=== PATIENT | male | born 1980 | race Caucasian/White ===

== ENCOUNTER 2017-01-11 22:39 | Emergency (ER) | payer OTHER ==
[~2017-01-11] VITALS: Ht 170.2 cm; Wt 94.5 kg
[2017-01-11 22:43] VITALS: Ht 170.2 cm; Wt 94.5 kg
[2017-01-11] MEDS ORDERED: ACETAMINOPHEN 325 MG TAB PO STA (23:34)
[2017-01-11] MEDS ORDERED: KETOROLAC 30 MG INJ IV STA (23:51)
[2017-01-12] MEDS ORDERED: CLINDAMYCIN 900 MG/D5W (PMX) 50 ML IVPB SCH
[2017-01-12] MEDS ORDERED: BENZOCAINE 20% 56 ML SPRAY TOP PRN ×2
[2017-01-12] MEDS ORDERED: DEXAMETHASONE 10 MG/ML 1 ML INJ IV ONE
[2017-01-12] MEDS ORDERED: LIDOCAINE 2% VISC 15 ML CUP PO ONE
--- NOTE | 2017-01-12 00:06 | ERD ---
ER Documentation Chief Complaint Date/Time DATE: 01/11/17 TIME: 23:58 Chief Complaint sore throat/painful swallowing x 2 days HPI 36-year-old male with a history of peritonsillar abscess presents emergency department complaining of left-sided throat pain, difficulty swallowing, fever, chills and body aches since today. Patient states he is attempted to treat his symptoms with ibuprofen with only mild relief. He states similar prior episodes and notes that the abscess was drained in the emergency department. Patient denies any abdominal pain, vomiting, diarrhea, shortness of breath or chest pain. ROS All systems reviewed and are negative except as per history of present illness. Medications Home Meds Active Scripts Naproxen* (Naprosyn*) 500 Mg Tablet, 500 MG PO BID for 7 Days, TAB Prov:COLLINS CABALLERO PA-C 01/12/17 Hydrocodone/Acetaminophen (Arpin 5-325 Tablet) 1 Each Tablet, 1 TAB PO Q6H Y for PAIN, #7 TAB Prov:COLLINS CABALLERO PA-C 01/12/17 Clindamycin Hcl* (Clindamycin Hcl*) 300 Mg Capsule, 300 MG PO TID for 10 Days, CAP Prov:COLLINS CABALLERO PA-C 01/12/17 Allergies Allergies: Coded Allergies: No Known Allergy (Verified Allergy, Unknown, 04/17/11) PMhx/Soc History of Surgery: Yes (lt eye surgery 02/25/11, drainage of L tonsil 3 yrs ago) Anesthesia Reaction: No Hx Neurological Disorder: No Hx Respiratory Disorders: No Hx Cardiac Disorders: No Hx Psychiatric Problems: No Hx Miscellaneous Medical Probl: No Hx Alcohol Use: No Hx Substance Use: Yes (occasional marijuana) Hx Tobacco Use: No Smoking Status: Never smoker Physical Exam Vitals Vital Signs Date Time Temp Pulse Resp B/P Pulse Ox O2 Delivery O2 Flow Rate FiO2 01/12/17 02:16 84 18 130/74 99 Room Air 01/12/17 01:40 100.7 01/11/17 22:43 101.9 115 20 120/75 98 Physical Exam Const: Well-developed, well-nourished, in mild distress Head: Atraumatic Eyes: Normal Conjunctiva ENT: Oropharynx with evidence of a 5 cm left sided tonsillar mass which is erythematous. Uvula shifted to the right. Normal External Ears, Nose Neck: Full range of motion..~ No meningismus. Resp: Clear to auscultation bilaterally Cardio: Regular rate and rhythm, no murmurs Abd: Soft, non tender, non distended. Normal bowel sounds Skin: No petechiae or rashes Back: No midline or flank tenderness Ext: No cyanosis, or edema Neur: Awake and alert Psych: Normal Mood and Affect Results 24 hrs Current Medications Medications (Trade) Dose Ordered Sig/Calixto Route PRN Reason Start Time Stop Time Status Last Admin Dose Admin Acetaminophen 650 mg 650 mg ONCE STAT PO 01/11/17 23:34 01/11/17 23:52 DC Clindamycin HCl/ Dextrose (Cleocin 900 Mg/ D5W (Pmx)) 50 ml @ 50 mls/hr ONCE IVPB 01/12/17 00:00 01/12/17 00:59 DC 01/12/17 00:27 Dexamethasone (Decadron) 10 mg ONCE ONCE IV 01/12/17 00:00 01/12/17 00:01 DC 01/12/17 00:16 Lidocaine (Xylocaine (Viscous)) 15 ml ONCE ONCE PO 01/12/17 00:00 01/12/17 00:01 DC 01/12/17 00:16 Benzocaine (Dermoplast Dewitt) 1 spray PRN PRN TOP throat pain 01/12/17 00:00 01/12/17 02:18 DC 01/12/17 00:16 Ketorolac Tromethamine (Toradol) 30 mg ONCE STAT IV 01/11/17 23:51 01/11/17 23:52 DC 01/12/17 00:17 Benzocaine (Dermoplast Dewitt) 1 spray PRN PRN TOP pain 01/12/17 00:00 01/12/17 02:18 DC Morphine Sulfate (morphine) 4 mg ONCE STAT IV 01/12/17 01:28 01/12/17 01:29 DC 01/12/17 01:38 Ondansetron HCl (Zofran Inj) 4 mg ONCE STAT IV 01/12/17 01:28 01/12/17 01:29 DC 01/12/17 01:38 Acetaminophen (Tylenol Tab) 650 mg ONCE ONCE PO 01/12/17 02:00 01/12/17 02:01 DC Procedures/MDM 36-year-old male with a history of peritonsillar abscess presents emergency department complaining of left-sided throat pain and difficulty swallowing. Patient febrile at 101.9 upon arrival. Patient non-hypoxic and normotensive. Physical exam revealed evidence of a large left-sided peritonsillar abscess. Abscess Incision and Drainage by me: Location: Left tonsil Anesthesia: Viscous lidocaine and benzocaine spray Technique: Punctured with 18-gauge spinal needle and aspirated approximately 3 cc of purulent fluid Packing: None Complications: No bleeding 48 hour check. Patient's symptoms have stabilized while they have been evaluated in the department and are appropriate for outpatient care and work up. Exam and w/u not consistent w/ sepsis, deep space infection, or foreign body. Patient received 1 dose of IV clindamycin, Decadron and Toradol in the emergency department and reports significant improvement of symptoms. Fever well controlled while in the emergency department. Patient nontoxic appearing upon arrival and tolerated abscess drainage without complication. There is no evidence of respiratory distress or compromise. Patient able to speak normally. Patient discharged with antibiotics and antipyretic. Strict return precautions discussed. Patient to follow-up with ENT specialist for recurrent peritonsillar abscess. Based on patient's history of present illness and physical examination the decision was made to discharge. The patient was re-evaluated after ED treatment and stabilizing measures, and symptoms have improved. There is no evidence of life threatening injuries or illnesses at this time. On re-examination, patient resting in no distress, stable vital signs, reports feeling better and safe for discharge with outpatient follow up with PMD in 1-2 days. Patient given return precautions. Departure Diagnosis: Primary Impression: Sore throat Additional Impressions: Peritonsillar abscess Fever Fever type: unspecified Qualified Code: R50.9 - Fever, unspecified fever cause Body aches COLLINS CABALLERO PA-C Jan 12, 2017 00:06
[2017-01-12] MEDS ORDERED: CLIN-73 PO (00:24)
[2017-01-12] MEDS ORDERED: HYDR-906 PO (00:24)
[2017-01-12] MEDS ORDERED: NAPR-260 PO (00:24)
[2017-01-12] MEDS ORDERED: morphine 4 MG/ML VIAL IV STA (01:28)
[2017-01-12] MEDS ORDERED: ONDANSETRON 4 MG INJ IV STA (01:28)
[2017-01-12 01:40] VITALS: TEMP 100.7
[2017-01-12] MEDS ORDERED: ACETAMINOPHEN 325 MG TAB PO ONE (02:00)
[2017-01-12 02:16] VITALS: BP 130/74; PULSE 84; RESP 18
== END 2017-01-12 02:15 | disposition home or self-care (01) ==
LOC: FTE 22:39
DX: J36 Peritonsillar abscess (principal); R50.9 Fever, unspecified; R52 Pain, unspecified
CPT/HCPCS: 42700; J1100; J1885; J2270; J2405; Z7610; 96374; 96375

== ENCOUNTER 2017-02-23 21:49 | Emergency (ER) | payer OTHER ==
[~2017-02-23] VITALS: Ht 172.7 cm; Wt 96.5 kg
[~2017-02-23 21:49] MED LIST: CLIN-73 PO; HYDR-906 PO; NAPR-260 PO
[2017-02-23 21:55] VITALS: Ht 172.7 cm; Wt 96.5 kg
[2017-02-24] MEDS ORDERED: ACET/BUTAL/CAFF TAB PO ONE (00:30)
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
--- NOTE | 2017-02-24 02:28 | RADRPT ---
PROCEDURE: CT BRAIN WITHOUT CONTRAST CLINICAL INDICATION: 36-year-old male with headaches. TECHNIQUE: The study was performed utilizing a GE [employer] VCT 64-slice CT scanner. Direct axia l sections were obtained from the foramen magnum to the vertex without the use of intravenous contra st material. Sagittal and coronal reformations were obtained. One or more the following dose reduct ion techniques were utilized: automated exposure control, adjustment of the mA and/or kV according t o patient's size or use of iterative reconstruction technique. The images were viewed on a PACS [employer]. CTD/vol = 45.0 mGy; Total Exam DLP = 810.3 mGy-cm. COMPARISON: None. FINDINGS: The ventricles have a normal size, shape and position. There is no evidence for mass effect or midl ine shift. There are no intracranial areas of abnormal attenuation. There is no evidence for acute intra or extra-axial blood. The bony calvarium is intact. The left globe is shrunken calcified cons istent with phthisis bulbi. As mild mucosal thickening within the ethmoid air cells and maxillary s inuses. No air-fluid levels are noted. The mastoid air cells are without significant soft tissue. IMPRESSION: 1. The intracranial contents are unremarkable on this noncontrast CT scan of the brain. 2. Left-sided phthisis bulbi. 3. Mild mucosal thickening paranasal sinuses. .David Mckeon MD, Date Time Electronically viewed and signed by .David Mckeon MD, on 02/24/2017 02:27 .M/
[2017-02-24] MEDS ORDERED: BUTA1CAP39 PO (02:38)
[2017-02-24] MEDS ORDERED: AMOX1TAB10 PO (02:38)
[2017-02-24] MEDS ORDERED: FLUT9.9S NASAL (02:38)
== END 2017-02-24 03:25 | disposition home or self-care (01) ==
LOC: FTE 21:49
DX: R51 Headache (principal); J01.80 Other acute sinusitis
CPT/HCPCS: 70450; Z7502; Z7610

== ENCOUNTER 2018-02-22 23:11 | Emergency (ER) | END 2018-02-23 00:01 | disposition left against medical advice (07) ==

== ENCOUNTER 2018-03-11 22:16 | Emergency (ER) | END 2018-03-12 00:45 | disposition left against medical advice (07) ==

== ENCOUNTER 2018-03-20 08:49 | Emergency (ER) | END 2018-03-20 14:19 | disposition home or self-care (01) ==

== ENCOUNTER 2018-06-05 21:13 | Emergency (ER) | END 2018-06-05 23:41 | disposition home or self-care (01) ==

== ENCOUNTER 2018-11-15 09:59 | Emergency (ER) | payer MEDICAID ==
[~2018-11-15] VITALS: Ht 170.2 cm; Wt 90.9 kg
[~2018-11-15 09:59] MED LIST changes: +AMOX1TAB10 PO; +BUTA1CAP39 PO; -CLIN-73 PO; +CLIN300C10 PO; +CYCL10TA7 PO; +FLUT9.9S NASAL; +HYDR-4011 PO; -HYDR-906 PO; +IBUP-1542 PO; +IBUP-1561 PO; -NAPR-260 PO; +NAPR-985 PO; +PRED20TA PO
[2018-11-15 10:03] VITALS: BP 132/85; PULSE 116; RESP 18; Ht 170.2 cm; Wt 90.9 kg
[2018-11-15] MEDS ORDERED: HYDROCODONE/APAP (10/325) TAB PO ONE (11:00)
[2018-11-15] MEDS ORDERED: BACITRACIN 0.9 GM OINT TOP ONE (11:00)
[2018-11-15] MEDS ORDERED: HYDR-4011 PO (11:27)
[2018-11-15] MEDS ORDERED: BACITUD TOP (11:38)
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
== END 2018-11-15 12:06 | disposition home or self-care (01) ==
LOC: FTE 09:59
DX: S80.11XA Contusion of right lower leg, initial encounter (principal); S99.911A Unspecified injury of right ankle, initial encounter; W22.8XXA Striking against or struck by other objects, initial encounter; Y92.9 Unspecified place or not applicable
CPT/HCPCS: 73590; 73610; Z7610

== ENCOUNTER 2018-11-17 11:24 | Emergency (ER) | payer MEDICAID ==
[~2018-11-17] VITALS: Wt 90.0 kg
[~2018-11-17 11:24] MED LIST changes: +BACITUD TOP
[2018-11-17 11:27] VITALS: BP 126/64; PULSE 84; RESP 18
[2018-11-17] MEDS ORDERED: KETOROLAC 60 MG INJ IM STA (12:25)
[2018-11-17] MEDS ORDERED: IBUP-1542 PO (14:59)
--- NOTE | 2018-11-17 15:13 | ERD ---
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 His pain is achy and rates it a 5 out of 10. States that he was evaluated 2 days ago, negative x-rays for any fractures or dislocations however feels like the swelling has not improved. States it has gotten worsen. Denies any fever, chills, nausea, vomiting, loss of sensation, loss of range of motion. ROS All systems reviewed and are negative except as per history of present illness. Medications Home Meds Active Scripts Ibuprofen* (Motrin*) 600 Mg Tab, 600 MG PO Q6, #30 TAB Prov:RONALDO RENDON PA-C 11/17/18 Bacitracin* (Bacitracin Oint (UD)*) 1 Applic Oint, 1 APPLIC TOP ONCE, #14 PKT APPLY TO Prov:RONALDO RENDON PA-C 11/15/18 Hydrocodone/Acetaminophen ([place] 5-325 Tablet) 1 Each Tablet, 1 TAB PO Q6H PRN for PAIN, #7 TAB Prov:RONALDO RENDON PA-C 11/15/18 Cyclobenzaprine Hcl* (Cyclobenzaprine Hcl*) 10 Mg Tablet, 10 MG PO Q8 PRN for PAIN, #60 TAB Prov:MARIELLA MULLENSON 09/01/18 Ibuprofen* (Ibuprofen*) 600 Mg Tablet, 600 MG PO Q6H PRN for PAIN, #30 TAB Prov:CHLOE MULLEN 09/01/18 Prednisone* (Prednisone*) 20 Mg Tab, 60 MG PO DAILY for 5 Days, TAB Prov:CHLOE MULLEN 09/01/18 Ibuprofen* (Motrin*) 400 Mg Tab, 400 MG PO Q8, #15 TAB Prov:KAYCE WERNER MD 03/20/18 Amoxicillin/Potassium Clav (Amox-Clav 875-125 mg Tablet) 875-125 mg Tab, 1 TAB PO BID for 7 Days, #14 TAB Prov:KAYCE WERNER MD 03/20/18 Fluticasone Propionate (Flonase Allergy Relief) 9.9 Ml [place].susp, 1 SPRAY NASAL BID, #1 BOTTLE TO EACH NOSTRIL Prov:LIZABETH ORELLANA NP 02/24/17 Amoxicillin/Potassium Clav (Amox-Clav 875-125 mg Tablet) 875-125 mg Tab, 1 TAB PO BID for 10 Days, #20 TAB Prov:LESLEEMASOODLIZABETH RAMIRES NP 02/24/17 Nekqmvzbfgmcu-Dfcnjfmenq-Ohjqfqpe-Codeine* (Fioricet w/ Codeine*) 317XP-65PS-32-30MG Capsule, 1 CAP PO Q6H PRN for PAIN LEVEL 1-5, #20 CAP Prov:LIZABETH ORELLANA NP 02/24/17 Naproxen* (Naprosyn*) 500 Mg Tablet, 500 MG PO BID for 7 Days, TAB Prov:COLLINS CABALLERO PA-C 01/12/17 Hydrocodone/Acetaminophen ([place] 5-325 Tablet) 1 Each Tablet, 1 TAB PO Q6H PRN for PAIN, #7 TAB Prov:COLLINS CABALLERO PA-C 01/12/17 Clindamycin Hcl* (Clindamycin Hcl*) 300 Mg Capsule, 300 MG PO TID for 10 Days, CAP Prov:COLLINS CABALLEROC 01/12/17 Allergies Allergies: Coded Allergies: No Known Allergy (Verified , 11/17/18) PMhx/Soc History of Surgery: Yes (lt eye surgery 11, drainage of L tonsil, umbilical h ernia repair 09) Anesthesia Reaction: No Hx Neurological Disorder: No Hx Respiratory Disorders: No Hx Cardiac Disorders: No Hx Psychiatric Problems: No Hx Miscellaneous Medical Probl: No Hx Alcohol Use: Yes Hx Substance Use: Yes (occasional marijuana) Hx Tobacco Use: No Smoking Status: Never smoker FmHx Family History: No diabetes, No coronary disease Physical Exam Vitals Vital Signs Date Temp Pulse Resp B/P (MAP) Pulse Ox O2 O2 Flow FiO2 Time Delivery Rate 11/17/18 98.1 84 18 126/64 99 11:27 (84) Physical Exam Const: Mgs-iti-gqpnwuxmd, well-nourished. In no acute distress. Head: Atraumatic, normocephalic Eyes: Normal Conjunctiva without injection ENT: Normal external ear, nose and mouth. Neck: Full range of motion. No meningismus. Resp: Clear to auscultation bilaterally. No wheezing, rhonchi, rales, or crackles. No accessory muscle use. No retractions. Cardio: Regular rate and rhythm, no murmurs Skin: No petechiae or rashes Back: No midline tenderness. No CVA tenderness. Ext: No cyanosis, or edema. Cap refill less than 2 seconds. Distal pulses intact bilaterally. There is tender to palpation of the left lateral malleolus with ecchymosis noted on the anterior menendez and edema noted of the calf. No palpable cords. No warmth to touch. No erythema. Limited range of motion with dorsiflexion, plantar flexion. Neur: Awake and alert. Normal gait and coordination. Muscle strength 5/5. Sensation intact bilaterally. Psych: Normal Mood and Affect Results 24 hrs Current Medications Medications Dose Sig/Calixto Start Time Status Last (Trade) Ordered Route PRN Stop Time Admin Dose Reason Admin Ketorolac 60 mg ONCE STAT 11/17/18 DC 11/17/18 Tromethamine IM 12:25 12:37 (Toradol) 11/17/18 12:27 Procedures/MDM 38-year-old male patient with no significant past medical history presents to ED complaining of a left ankle and menendez injury due to a machine about 1000 pounds hitting his leg. Patient is afebrile and nontoxic-appearing. Patient is here for the second time for reevaluation. A left tib-fib, ankle x-rays ordered to further evaluate patient. Since there is more swelling than 2 days ago, a venous ultrasound was also ordered to further evaluate patient. Patient denied wanting any pain medications at this time. IMPRESSION: Soft tissue swelling with no acute fracture. IMPRESSION: No sonographic evidence for deep venous thrombosis. IMPRESSION: Marked soft tissue swelling lateral to the lateral malleolus with no acute fracture. Patient is placed in a posterior ankle splint. Patient already has crutches from his visit, 2 days ago. Splint Assessment: Neurovascularly intact pre and post splint placement with good fit. Patient's extremity symptoms have stabilized while they have been evaluated in the department and are appropriate for outpatient follow up. No evidence of fractures, dislocations, compartment syndrome, neurologic injury, vascular injury, open joint, open fracture, tendon laceration, septic arthritis, osteomyelitis, DVT, foreign body, or other emergent conditions. Diagnosis: Pain of left leg Discharge medications: Ibuprofen Follow up with primary care physician in 1-2 days for referral to see orthopedic physician. Instructed patient to return to the ED sooner for any worsening symptoms. Patient's questions were answered. Patient is hemodynamically stable. Patient understood and agreed with discharge plan. Patient discharged stable. Disclaimer: Inadvertent spelling and grammatical errors are likely due to EHR/dictation software use and do not reflect on the overall quality of patient care. Also, please note that the electronic time recorded on this note does not necessarily reflect the actual time of the patient encounter. Departure Diagnosis: Primary Impression: Pain of left leg Condition: Stable Patient Instructions: Contusion, Lower Extremity, Ankle Fracture (Distal Fibula), Closed Referrals: [facility] YOU HAVE RECEIVED A MEDICAL SCREENING EXAM AND THE RESULTS INDICATE THAT YOU DO NOT HAVE A CONDITION THAT REQUIRES URGENT TREATMENT IN THE EMERGENCY DEPARTMENT. FURTHER EVALUATION AND TREATMENT OF YOUR CONDITION CAN WAIT UNTIL YOU ARE SEEN IN YOUR DOCTORS OFFICE WITHIN THE NEXT 1-2 DAYS. IT IS YOUR RESPONSIBILITY TO MAKE AN APPOINTMENT FOR FOLOW-UP CARE. IF YOU HAVE A PRIMARY DOCTOR --you should call your primary doctor and schedule an appointment IF YOU DO NOT HAVE A PRIMARY DOCTOR YOU CAN CALL OUR PHYSICIAN REFERRAL HOTLINE AT IF YOU CAN NOT AFFORD TO SEE A PHYSICIAN YOU CAN CHOSE FROM THE FOLLOWING [facility] [address] [facility]. [facility] [address] [facility]. [facility] [address] [address] [facility] [facility] [address] [facility]. [facility]. [address] [facility]. [facility] YOU HAVE RECEIVED A MEDICAL SCREENING EXAM AND THE RESULTS INDICATE THAT YOU DO NOT HAVE A CONDITION THAT REQUIRES URGENT TREATMENT IN THE EMERGENCY DEPARTMENT. FURTHER EVALUATION AND TREATMENT OF YOUR CONDITION CAN WAIT UNTIL YOU ARE SEEN IN YOUR DOCTORS OFFICE WITHIN THE NEXT 1-2 DAYS. IT IS YOUR RESPONSIBILITY TO MAKE AN APPOINTMENT FOR FOLOW-UP CARE. IF YOU HAVE A PRIMARY DOCTOR --you should call your primary doctor and schedule and appointment IF YOU DO NOT HAVE A PRIMARY DOCTOR YOU CAN CALL OUR PHYSICIAN REFERRAL HOTLINE AT . IF YOU CAN NOT AFFORD TO SEE A PHYSICIAN YOU CAN CHOSE FROM THE FOLLOWING [facility]: [facility] [address] [place] [address] [facility] [address] [place] [address] [facility] [address] [place] [address] [facility] Urgent Care 7 a.m.- 11 p.m. Every Day of the Week NO APPOINTMENT OR AUTHORIZATION NEEDED SO [facility] Hours: Mon-Fri 9:00 AM - 5:00 PM Additional Instructions: Call your primary care doctor TOMORROW for an appointment during the next 2-3 days for a referral to see an orthopedic phyisican.See the doctor sooner or return here if your condition worsens before your appointment time. RONALDO RENDON PA-C Nov 17, 2018 15:13
== END 2018-11-17 15:11 | disposition home or self-care (01) ==
LOC: FTE 11:24
DX: M79.605 Pain in left leg (principal)
CPT/HCPCS: 29515; 73590; 73610; 93971; 96372; J1885; Z7502

== ENCOUNTER 2019-02-28 14:52 | Emergency (ER) | payer MEDICAID, OTHER ==
[~2019-02-28] VITALS: Ht 170.2 cm; Wt 94.2 kg
[2019-02-28 14:56] VITALS: BP 127/77; PULSE 97; RESP 20; Ht 170.2 cm; Wt 94.2 kg
--- NOTE | 2019-02-28 15:51 | ERD ---
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 Patient said the same thing happened to him yesterday and he actually lost consciousness, he was also drinking alcohol, he was transported to unknown hospital, monitored and released. Today denies syncope, denies chest pain denies heart palpitations, denies shortness of breath, denies photophobia, phonophobia, blurred vision, nausea or vomiting. No abdominal pain, no hematuria, no melena. States headache is a diffuse dull pain without exacerbating features or neuro deficit. Patient is alert and appropriate, cooperative at time of evaluation. ROS All systems reviewed and are negative except as per history of present illness. Medications Home Meds Active Scripts Ibuprofen* (Motrin*) 600 Mg Tab, 600 MG PO Q6, #30 TAB Prov:RONALDO RENDON PA-C 11/17/18 Bacitracin* (Bacitracin Oint (UD)*) 1 Applic Oint, 1 APPLIC TOP ONCE, #14 PKT APPLY TO Prov:RONALDO RENDON PA-C 11/15/18 Hydrocodone/Acetaminophen ([place] 5-325 Tablet) 1 Each Tablet, 1 TAB PO Q6H PRN for PAIN, #7 TAB Prov:RONALDO RENDON PA-C 11/15/18 Cyclobenzaprine Hcl* (Cyclobenzaprine Hcl*) 10 Mg Tablet, 10 MG PO Q8 PRN for PAIN, #60 TAB Prov:CHLOE MULLEN 09/01/18 Ibuprofen* (Ibuprofen*) 600 Mg Tablet, 600 MG PO Q6H PRN for PAIN, #30 TAB Prov:CHLOE MULLEN 09/01/18 Prednisone* (Prednisone*) 20 Mg Tab, 60 MG PO DAILY for 5 Days, TAB Prov:CHLOE MULLEN 09/01/18 Ibuprofen* (Motrin*) 400 Mg Tab, 400 MG PO Q8, #15 TAB Prov:KAYCE WERNER MD 03/20/18 Amoxicillin/Potassium Clav (Amox-Clav 875-125 mg Tablet) 875-125 mg Tab, 1 TAB PO BID for 7 Days, #14 TAB Prov:NGUYEN-SOLER,KAYCE MD 03/20/18 Fluticasone Propionate (Flonase Allergy Relief) 9.9 Ml [place].susp, 1 SPRAY NASAL BID, #1 BOTTLE TO EACH NOSTRIL Prov:LIZABETH ORELLANA NP 02/24/17 Amoxicillin/Potassium Clav (Amox-Clav 875-125 mg Tablet) 875-125 mg Tab, 1 TAB PO BID for 10 Days, #20 TAB Prov:LIZABETH ORELLANA NP 02/24/17 Zyqpuqhwsivpv-Zwbrkgtfqe-Povkvhos-Codeine* (Fioricet w/ Codeine*) 141KN-43PM-07-30MG Capsule, 1 CAP PO Q6H PRN for PAIN LEVEL 1-5, #20 CAP Prov:LIZABETH ORELLANA NP 02/24/17 Naproxen* (Naprosyn*) 500 Mg Tablet, 500 MG PO BID for 7 Days, TAB Prov:COLLINS CABALLERO PA-C 01/12/17 Hydrocodone/Acetaminophen ([place] 5-325 Tablet) 1 Each Tablet, 1 TAB PO Q6H PRN for PAIN, #7 TAB Prov:COLLINS CABALLERO PA-C 01/12/17 Clindamycin Hcl* (Clindamycin Hcl*) 300 Mg Capsule, 300 MG PO TID for 10 Days, CAP Prov:COLLINS CABALLERO PA-C 01/12/17 Allergies Allergies: Coded Allergies: No Known Allergy (Verified , 11/17/18) PMhx/Soc History of Surgery: Yes (lt eye surgery 11, drainage of L tonsil, umbilical hernia repair 09) Anesthesia Reaction: No Hx Neurological Disorder: No Hx Respiratory Disorders: No Hx Cardiac Disorders: No Hx Psychiatric Problems: No Hx Miscellaneous Medical Probl: No Hx Alcohol Use: Yes Hx Substance Use: Yes (occasional marijuana) Hx Tobacco Use: No FmHx Family History: No diabetes, No coronary disease, No other Physical Exam Vitals Vital Signs Date Temp Pulse Resp B/P (MAP) Pulse Ox O2 O2 Flow FiO2 Time Delivery Rate 02/28/19 98.0 97 20 127/77 99 14:56 (94) Physical Exam Const: No acute distress Head: Atraumatic Eyes: Normal Conjunctiva, PERRL, EOMI ENT: Normal External Ears, Nose and Mouth. Neck: Full range of motion. No meningismus. No lymphadenopathy Resp: Clear to auscultation bilaterally, equal chest rise, no wheezing, no rales Cardio: Regular rate and rhythm, no murmurs Abd: Soft, non tender, non distended. Normal bowel sounds Skin: No petechiae or rashes, no bruising Back: No midline or flank tenderness, no CVT Ext: No cyanosis, or edema Neur: Awake and alert, CN II-XII, steady gait, clear speech, no pronator drift, no ataxia, neg romberg Psych: Normal Mood and Affect Result Diagram: 02/28/19 1610 02/28/19 1610 Results 24 hrs Laboratory Tests Test 02/28/19 16:10 White Blood Count 11.7 10^3/ul Red Blood Count 4.40 10^6/ul Hemoglobin 14.1 g/dl Hematocrit 39.9 % Mean Corpuscular Volume 90.7 fl Mean Corpuscular Hemoglobin 32.0 pg Mean Corpuscular Hemoglobin Concent 35.3 g/dl Red Cell Distribution Width 13.0 % Platelet Count 214 10^3/UL Mean Platelet Volume 9.9 fl Immature Granulocytes % 0.300 % Neutrophils % 67.3 % Lymphocytes % 21.6 % Monocytes % 8.8 % Eosinophils % 1.5 % Basophils % 0.5 % Nucleated Red Blood Cells % 0.0 /100WBC Immature Granulocytes # 0.040 10^3/ul Neutrophils # 7.9 10^3/ul Lymphocytes # 2.5 10^3/ul Monocytes # 1.0 10^3/ul Eosinophils # 0.2 10^3/ul Basophils # 0.1 10^3/ul Nucleated Red Blood Cells # 0.0 10^3/ul Sodium Level 138 mmol/L Potassium Level 4.0 mmol/L Chloride Level 102 mmol/L Carbon Dioxide Level 26 mmol/L Anion Gap 10 Blood Urea Nitrogen 14 mg/dl Creatinine 0.89 mg/dl Est Glomerular Filtrat Rate mL/min > 60 mL/min Glucose Level 91 mg/dl Calcium Level 9.3 mg/dl Total Bilirubin 1.2 mg/dl Direct Bilirubin 0.00 mg/dl Indirect Bilirubin 1.2 mg/dl Aspartate Amino Transf (AST/SGOT) 38 IU/L Alanine Aminotransferase (ALT/SGPT) 30 IU/L Alkaline Phosphatase 73 IU/L Total Protein 7.2 g/dl Albumin 4.4 g/dl Globulin 2.80 g/dl Albumin/Globulin Ratio 1.57 Urine Opiates Screen Negative Urine Barbiturates Negative Urine Amphetamines Screen Negative Urine Benzodiazepines Screen Negative Urine Cocaine Screen Negative Urine Cannabinoids Positive Ethyl Alcohol Level < 10.0 mg/dl Procedures/MDM PROCEDURES/MDM EKG: Read by Dr. Pena, attending physician. EKG shows normal sinus rhythm at a rate of 86 bpm. No arrhythmias, acute ST elevations or T wave changes were noted. DIAGNOSTIC IMAGING: Read by radiologist. Chest Xray IMPRESSION: 1. No acute cardiopulmonary disease. LAB INTERPRETATION:reports adequate hy Mild leukocytosis, no anemia, no electrolyte disorder, normal kidney function, normo glycemia, no transaminitis. Neg ETOH, +cannabinoid. 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 Patient reports adequate hydration, as well as alcohol and marijuana use. Patient denies having chest pain, shortness of breath, or palpitations. The patient is clinically well appearing and stable. Symptoms are not suggestive of cardiac ischemia, pulmonary embolus, aortic dissection, or other serious etiology. These diagnoses have been considered and excluded clinically and with additional diagnostic studies as indicated. The history of the syncopal episode suggest a benign or nonserious cause of syncope. Furthermore the criteria of the [place] syncope rule are absent which supports a very low risk of serious outcome. Syncope precautions have been given and the patient warned to return immediately for worsening symptoms or any concerns. Patient and his have been instructed on increasing hydration, eliminating alcohol and drug use, taking frequent rest breaks, not working in the hot sun, and following up with primary care provider for further evaluation. Patient has been provided with lab results, EKG, chest x-ray results for follow-up. Patient has been instructed on signs and symptoms of worsening of condition and when to return to the emergency room. DISPOSITION and PLAN: RX:none The patient has been discharge home to follow-up with community physician. Departure Diagnosis: Primary Impression: Heat causing collapse Encounter type: initial encounter Qualified Codes: T67.1XXA - Heat sy ncope, initial encounter Condition: Stable JAMIE HART NP Feb 28, 2019 15:51
== END 2019-02-28 17:47 | disposition home or self-care (01) ==
LOC: FTE 14:52
DX: T67.1XXA Heat syncope, initial encounter (principal)
CPT/HCPCS: 71046; 80053; 80307; 85025; 93005